=== PATIENT | male | born 1980 | race Caucasian/White ===

== ENCOUNTER 2018-07-25 09:13 | Inpatient (IN) | payer BC ==
[~2018-07-25 09:13] MED LIST: Midazolam 1 MG/ML 2 ML SDV ONE; Morphine 2 MG/ML Syringe IVPUSH PRN; Propofol 200 MG/20 ML SDV ONE; ceFAZolin 2 GM in Premix Bag 1 BAG IV SCH; fentaNYL 100 MCG/2 ML SDV ONE
[2018-07-25] MEDS ORDERED: Propofol 200 MG/20 ML SDV ONE (09:18)
--- NOTE | 2018-07-25 09:47 | PCM.PREANE ---
Preanesthetic Assessment - Anesthesia/Transfusion/Family Hx Anesthesia History: Prior Anesthesia Without Reaction Family History of Anesthesia Reaction: No Transfusion History: No Prior Transfusion(s) Intubation History: Unknown - Review of Systems General: No Symptoms Pulmonary: No Symptoms Cardiovascular: No Symptoms Gastrointestinal: No Symptoms Neurological: No Symptoms Other: Reports: None - Physical Assessment O2 Sat by Pulse Oximetry: 99 Respiratory Rate: 16 Vital Signs: Last Vital Signs Temp 36.2 C 07/25/18 09:32 Pulse 70 07/25/18 09:32 Resp 16 07/25/18 09:32 BP 139/90 07/25/18 09:32 Pulse Ox 99 07/25/18 09:32 Height: 1.73 m Weight: 90.718 kg ASA Class: 2 Mental Status: Alert & Oriented x3 Airway Class: Mallampati = 2 Dentition: Reports: Normal Dentition, Broken Tooth/Teeth (back right, lower) Thyro-Mental Finger Breadths: 3 Mouth Opening Finger Breadths: 3 ROM/Head Extension: Full Lungs: Clear to Auscultation, Normal Respiratory Effort Cardiovascular: Regular Rate, Regular Rhythm - Allergies Allergies/Adverse Reactions: Allergies Allergy/AdvReac Type Severity Reaction Status Date / Time No Known Allergies Allergy Verified 07/25/18 09:37 - Blood Blood Available: No - Anesthesia Plan Pre-Op Medication Ordered: None - Acknowledgements Anesthesia Type Planned: Spinal Pt an Appropriate Candidate for the Planned Anesthesia: Yes Alternatives and Risks of Anesthesia Discussed w Pt/Guardian: Yes Pt/Guardian Understands and Agrees with Anesthesia Plan: Yes PreAnesthesia Questionnaire HEENT History: Reports: None Musculoskeletal History: Reports: Fracture, Other (See Below) Other Musculoskeletal History: congenital dysplasia of rt hip, hx fx collarbone and nose Endocrine/Metabolic History: Reports: Obesity/BMI 30+ - Past Surgical History Head Surgeries/Procedures: Reports: None HEENT Surgical History: Reports: LASIK, Naso-Sinus Surgery - SUBSTANCE USE Smoking Status *Q: Never Smoker Tobacco Use Within Last Twelve Months: Other (See Below) (chew tobacco 10-15 years ago) Recreational Drug Use History: No - HOME MEDS Home Medications: Home Meds Naproxen Sodium [Aleve] 2 tab PO ASDIRECTED PRN 07/21/18 [History] - CURRENT (IN HOUSE) MEDS Current Meds: Current Medications Cefazolin Sodium/Dextrose 2 gm (/ Premix) 50 mls @ 100 mls/hr IV ONETIME OPAL Discontinued Medications Fentanyl (Sublimaze) Confirm Administered Dose 100 mcg .ROUTE .STK-MED ONE Stop: 07/25/18 09:12 Lidocaine HCl (Xylocaine-Mpf 1%) Confirm Administered Dose 5 mls @ as directed .ROUTE .STK-MED ONE Stop: 07/25/18 09:13 Midazolam HCl (Versed 1 Mg/Ml) Confirm Administered Dose 2 mg .ROUTE .STK-MED ONE Stop: 07/25/18 09:09 Midazolam HCl (Versed 1 Mg/Ml) Confirm Administered Dose 2 mg .ROUTE .STK-MED ONE Stop: 07/25/18 09:12 Propofol (Diprivan 20 Ml) Confirm Administered Dose 200 mg .ROUTE .STK-MED ONE Stop: 07/25/18 09:13 Propofol (Diprivan 20 Ml) Confirm Administered Dose 200 mg .ROUTE .STK-MED ONE Stop: 07/25/18 09:19 Tranexamic Acid (Cyklokapron) Confirm Administered Dose 2,000 mg .ROUTE .STK- MED ONE Stop: 07/25/18 07:19
[2018-07-25] MEDS ORDERED: Dermabond Prineo 1 Tube ONE (10:00)
[2018-07-25] MEDS ORDERED: ceFAZolin/Dextrose,Iso-Osmotic 2 GM/50 ML Duplex Bag IV ONE (10:35)
[2018-07-25] MEDS ORDERED: Phenylephrine/Normal Saline 100 MCG/ML 10 ML Syringe ONE (11:49)
[2018-07-25] MEDS ORDERED: Midazolam 1 MG/ML 2 ML SDV ONE (11:50)
[2018-07-25] MEDS ORDERED: Ketamine 500 mg/10 ML MDV ONE (11:51)
[2018-07-25] MEDS ORDERED: diphenhydrAMINE 50 MG/ML SDV IVPUSH PRN (12:14)
[2018-07-25] MEDS ORDERED: fentaNYL 100 MCG/2 ML SDV IVPUSH PRN (12:16)
[2018-07-25] MEDS ORDERED: Ondansetron 4 MG/2 ML SDV IVPUSH PRN ×2 (12:17→12:47)
[2018-07-25] MEDS ORDERED: Aluminum Hydroxide/Magnesium Hydroxide/Simethicone Susp 30 ML Cup PO PRN (12:47)
[2018-07-25] MEDS ORDERED: diphenhydrAMINE 25 MG Cap PO PRN (12:47)
[2018-07-25] MEDS ORDERED: Docusate Sodium 100 MG Cap PO PRN (12:47)
[2018-07-25] MEDS ORDERED: Sodium Chloride 0.9% 10 ML Syringe FLUSH PRN (12:47)
[2018-07-25] MEDS ORDERED: Bisacodyl 10 MG Supp RECTAL PRN (12:47)
[2018-07-25] MEDS ORDERED: Sodium Chloride 0.9% 2.5 ML Syringe FLUSH PRN (12:47)
--- NOTE | 2018-07-25 12:51 | PCM.OPNOTE ---
- General Post-Op/Procedure Note Date of Surgery/Procedure: 07/25/18 Operative Procedure(s): right anterior total hip arthroplasty Findings: severe OA Pre Op Diagnosis: right hip dysplasia with osteoarthitis Post-Op Diagnosis: same Anesthesia Technique: Moderate Sedation, Spinal Primary Surgeon: Panda Tracy Mai Pathology: femoral head Complications: none Condition: Good
[2018-07-25] MEDS ORDERED: Meperidine PF 25 MG/ML Syringe IVPUSH ONE (13:07)
--- NOTE | 2018-07-25 13:29 | PCM.POSTAN ---
POST ANESTHESIA ASSESSMENT - MENTAL STATUS Mental Status: Alert, Oriented - RESPIRATORY Respiratory Status: Respiratory Rate WNL, Airway Patent, O2 Saturation Stable - CARDIOVASCULAR CV Status: Pulse Rate WNL, Blood Pressure Stable - GASTROINTESTINAL GI Status: No Symptoms - PAIN Pain Score: 0 - POST OP HYDRATION Hydration Status: Adequate & Stable
--- NOTE | 2018-07-25 15:42 | CR ---
EXAMINATION: Right hip HISTORY: Arthroplasty COMPARISON: 06/29/2018 TECHNIQUE: 2 images provided FINDINGS/IMPRESSION: Operative control films demonstrate right total hip hardware in good position and alignment.
[2018-07-25] MEDS: Acetaminophen/HYDROcodone 325-5 MG Tab PO PRN ×2 (18:15→22:49)
[2018-07-25] MEDS: ceFAZolin 2 GM in Premix Bag 1 BAG IV SCH ×2 (19:51→19:52)
--- NOTE | 2018-07-25 20:15 | OR ---
SURGEON: Panda Ling MD DATE OF PROCEDURE: 07/25/2018 LECTURER OF [place]UG[place]: Angie Dukes PA-C. PREOPERATIVE DIAGNOSIS: Right hip dysplasia with osteoarthritis. POSTOPERATIVE DIAGNOSIS: Right hip dysplasia with osteoarthritis. OPERATION PERFORMED: Right anterior total hip arthroplasty. ANESTHESIA: Spinal and sedation. COMPLICATION: None. ESTIMATED BLOOD LOSS: 300 mL. SPECIMENS: Femoral head. IMPLANTS: Segundo Continuum trabecular metal shell with cluster holes, 54-mm outer diameter, one 6.5 x 30 mm length bone screw, Vivacit-E neutral liner, 36-mm inner diameter, M/L Taper standard offset size 11 press-fit, Biolox delta ceramic femoral head 36 mm diameter, 0 neck length. INDICATIONS: The patient is a 37-year-old male, severe arthritis related to dysplasia with appearance of possible Perthes as a child. He has failed conservative measures to modification therapy, injections, chronic pain on a daily basis, hindering all activities. He wished to undergo replacement. He understands the risks, benefits, alternatives, complications including, but not limited to, infection, neurovascular injury, continued pain, dislocation, fracture, DVT, PE, stroke, AR, , leg-length discrepancy, and he wished to proceed. DESCRIPTION OF PROCEDURE: The patient was seen in the preoperative area. Operative extremity was marked with the patient. He was transferred to the operating room where spinal anesthetic was given. He was placed supine on the Chambers table and sedation was given. The legs were placed in the leg bars on the Chambers table with a narrow perineal post and right hip prepped and draped in usual sterile fashion using alcohol followed by ChloraPrep. A formal time-out was taken, identifying the correct patient, procedure, and extremity. He received preop antibiotics with Ancef and 2 g of TXA. There was Ioban covering. An 8 cm incision starting just lateral to the ASIS going obliquely down the femur was made. Dissection was carried down to the subcutaneous tissues. Hemostasis was obtained. The fascia overlying the TFL lateral to the lateral femoral cutaneous nerve was opened and the interval between the TFL and sartorius deep between the abductors and rectus was opened. The vastus lateralis fascia was opened. The anterior vessels were coagulated. The indirect head of the rectus was released, and the capsule was held and tagged with two sutures. Deep retractors were placed. The head was noted to be very large and actually subluxed out fully. The neck was kept in saddle region 1 cm above the lesser trochanter and the head was removed. There was severe arthritis. The head was very large. There was dysplasia with a high acetabular index. The labral remnants were removed and the inferior capsule was released preserving the iliopsoas tendon. The pulvinar was removed. The hip was sequentially reamed from 47 up to 53 mm going slightly superomedial to get good fit and fill especially due to the dysplasia and then after irrigating a new Continuum trabecular metal shell with cluster holes was impacted with screw hole straight superior in 10 degrees of anteversion and 40 degrees of abduction. There was excellent press fit with some uncovering laterally once straight superior bone screw was placed after drilling. The neutral liner was impacted. The femoral lift was placed. The leg was externally rotated, abducted, and extended. Superior capsule obturator, internus and piriformis were released. Central canal finder was utilized and the hip was sequentially broached from 4 up to size 11. A 12.5 would not go down and therefore it was trial reduced with a standard offset and 0 neck. Printed overlay technique showed equal leg lengths and offset compared to the opposite side. Therefore, the hip was dislocated. Following the la posta version, the final M/L Taper size 11 standard offset was impacted and the 0 neck 36 mm diameter head was impacted. The hip was relocated. There was stable range of motion. There was no Shuck and would not dislocate. The wound was thoroughly irrigated. The two tag sutures were tied together. The fascia was closed with #1 Vicryl, subcutaneous tissues with 2-0 Stratafix, skin with running 4-0 Monocryl with Dermabond tape. Aquacel dressing was placed. The patient was transferred to recovery room in stable condition. Sponge and needle counts were correct at the end of case. No complications. BOYD / HERMINIA /[id number]
[2018-07-26] MEDS: Acetaminophen/HYDROcodone 325-5 MG Tab PO PRN ×2 (03:30→10:11)
[2018-07-26] MEDS: ceFAZolin 2 GM in Premix Bag 1 BAG IV SCH (03:34)
--- NOTE | 2018-07-26 07:27 | PCM.SN ---
- Free Text/Narrative Note: subjective: has ambulated in room, not in hallway. tolerating PO, no other issues. Pain well controlled Objective: afebrile, vital signs stable dressing clean/dry/intact. normal sensation and motor distally with 2+ DP hgb 13.1 assessment/plan: POD #1 right MARCO A - full weight bearing with walker - SCDs and ecotrin for DVT prophylaxis - home later today
--- NOTE | 2018-07-26 07:31 | PCM48HPAN ---
Post Anesthesia Note - EVALUATION WITHIN 48HRS OF ANESTHETIC Vital Signs in Normal Range: Yes Patient Participated in Evaluation: Yes Respiratory Function Stable: Yes Airway Patent: Yes Cardiovascular Function Stable: Yes Hydration Status Stable: Yes Pain Control Satisfactory: Yes Nausea and Vomiting Control Satisfactory: Yes Mental Status Recovered: Yes Resp Rate: 18 - COMMENTS/OBSERVATIONS Free Text/Narrative:: Up walking in room with walker and states pain is under control
[2018-07-26] MEDS ORDERED: Polyethylene Glycol 3350 Powder 17 GM Packet PO SCH (09:00)
[2018-07-26] MEDS ORDERED: Aspirin 325 MG Tab PO SCH (09:00)
[2018-07-26] MEDS ORDERED: Celecoxib 100 MG Cap PO SCH (09:00)
[2018-07-26] MEDS ORDERED: Famotidine 20 MG Tab PO SCH (09:00)
--- NOTE | 2018-07-26 13:35 | PCM.DCSUM1 ---
Discharge Summary - Hospital Course Brief History: Patient is admitted for elective hip replacement Diagnosis: Stroke: No - Discharge Data Discharge Date: 07/26/18 Discharge Disposition: Home, Self-Care 01 Condition: Good - Patient Summary/Data Operative Procedure(s) Performed: right anterior total hip arthroplasty Consults: Consultations 07/25/18 12:47 PT Evaluation and Treatment [CONS] Routine Hospital Course: He was admitted and underwent uneventful hip replacement. Postoperatively he was admitted to the floor where pain was controlled and diet was advanced. He participated in therapy and did well and was subsequently discharged home on postoperative day #1 - Patient Instructions Diet: Usual Diet as Tolerated Activity: Apply Ice, Full Weight Bearing Driving: Do Not Drive Showering/Bathing: May Shower Wound/Incision Care: Keep Operative Site/Wound Site Clean and Dry, Do NOT Change Dressing Notify Provider of: Fever, Drainage - Discharge Plan *PRESCRIPTION DRUG MONITORING PROGRAM REVIEWED*: No *COPY OF PRESCRIPTION DRUG MONITORING REPORT IN PATIENT JOSUE: No Home Medications: Home Meds Naproxen Sodium [Aleve] 2 tab PO ASDIRECTED PRN 07/21/18 [History] Patient Handouts: Acetaminophen; Hydrocodone tablets or capsules, Partial Hip Replacement, Care After, Aspirin, ASA oral tablets, Docusate capsules Referrals: Angie Dukes PA [Physician Unit Support Representative] - 08/08/18 9:00 am - Discharge Summary/Plan Comment DC Time >30 min.: No - Patient Data Vitals - Most Recent: Last Vital Signs Temp 37 C 07/26/18 08:00 Pulse 92 07/26/18 08:00 Resp 18 07/26/18 08:00 BP 131/70 07/26/18 08:00 Pulse Ox 94 L 07/26/18 08:00 Weight - Most Recent: 90.718 kg I&O - Last 24 hours: Intake & Output 07/25/18 07/26/18 07/26/18 22:59 06:59 14:59 Intake Total 0 900 200 Output Total 0 1100 500 Balance 0 -200 -300 Lab Results - Last 24 hrs: Laboratory Results - last 24 hr 07/26/18 Range/Units 05:30 Hgb 13.2 (13.0-17.0) g/dL Hct 39.2 (38.0-50.0) % Med Orders - Current: Current Medications Discontinued Medications Hydrocodone Bitart/Acetaminophen ([place] 325-5 Mg) 1 - 2 tab PO Q4H PRN PRN Reason: Pain Last Admin: 07/26/18 10:11 Dose: 2 tab Al Hydroxide/Mg Hydroxide (Mag-Al Plus) 30 ml PO Q4H PRN PRN Reason: Indigestion Aspirin (Aspirin) 325 mg PO BID [facility] Last Admin: 07/26/18 10:11 Dose: 325 mg Bisacodyl (Dulcolax) 10 mg RECTAL DAILY PRN PRN Reason: Constipation Cefazolin Sodium/Dextrose (Ancef) Confirm Administered Dose 2 gm IV .STK-MED ONE Stop: 07/25/18 10:36 Celecoxib (Celebrex) 200 mg PO BID [facility] Last Admin: 07/26/18 10:11 Dose: 200 mg Diphenhydramine HCl (Benadryl) 25 - 50 mg IVPUSH Q6H PRN PRN Reason: Itching Diphenhydramine HCl (Benadryl) 25 - 50 mg PO Q6H PRN PRN Reason: Itching Docusate Sodium (Colace) 100 mg PO BID PRN PRN Reason: Constipation Famotidine (Pepcid) 40 mg PO DAILY [facility] Last Admin: 07/26/18 10:11 Dose: 40 mg Fentanyl (Sublimaze) Confirm Administered Dose 100 mcg .ROUTE .STK-MED ONE Stop: 07/25/18 09:12 Fentanyl (Sublimaze) 50 mcg IVPUSH Q5M PRN PRN Reason: Pain Cefazolin Sodium/Dextrose 2 gm (/ Premix) 50 mls @ 100 mls/hr IV ONETIME [facility] Last Infusion: 07/25/18 19:19 Dose: Infused Lidocaine HCl (Xylocaine-Mpf 1%) Confirm Administered Dose 5 mls @ as directed .ROUTE .STK-MED ONE Stop: 07/25/18 09:13 Cefazolin Sodium/Dextrose 2 gm (/ Premix) 50 mls @ 100 mls/hr IV Q8H [facility] Stop: 07/26/18 03:59 Last Admin: 07/26/18 03:34 Dose: 100 mls/hr Ketamine HCl (Ketalar) Confirm Administered Dose 500 mg .ROUTE .STK-MED ONE Stop: 07/25/18 11:52 Meperidine HCl (Demerol) 25 mg IVPUSH ONETIME ONE Stop: 07/25/18 13:08 Last Admin: 07/25/18 13:10 Dose: 12.5 mg Midazolam HCl (Versed 1 Mg/Ml) Confirm Administered Dose 2 mg .ROUTE .STK-MED ONE Stop: 07/25/18 09:09 Midazolam HCl (Versed 1 Mg/Ml) Confirm Administered Dose 2 mg .ROUTE .STK-MED ONE Stop: 07/25/18 09:12 Midazolam HCl (Versed 1 Mg/Ml) Confirm Administered Dose 2 mg .ROUTE .STK-MED ONE Stop: 07/25/18 11:51 Morphine Sulfate (Morphine) 1 - 3 mg IVPUSH Q3H PRN PRN Reason: Pain Last Admin: 07/25/18 18:14 Dose: 2 mg Octyl Cyanoacrylate (Dermabond Prineo) 1 applic .ROUTE .STK-MED ONE Stop: 07/25/18 10:01 Ondansetron HCl (Zofran) 4 mg IVPUSH Q6H PRN PRN Reason: Nausea/Vomiting Ondansetron HCl (Zofran) 4 mg IVPUSH Q6H PRN PRN Reason: Nausea/Vomiting Phenylephrine HCl (Phenylephrine In Ns 100 Mcg/Ml) Confirm Administered Dose 1 mg .ROUTE .STK-MED ONE Stop: 07/25/18 11:50 Polyethylene Glycol (Miralax) 17 gm PO DAILY [facility] Last Admin: 07/26/18 10:16 Dose: 17 gm Propofol (Diprivan 20 Ml) Confirm Administered Dose 200 mg .ROUTE .STK-MED ONE Stop: 07/25/18 09:13 Propofol (Diprivan 20 Ml) Confirm Administered Dose 200 mg .ROUTE .STK-MED ONE Stop: 07/25/18 09:19 Sodium Chloride (Saline Flush) 10 ml FLUSH ASDIRECTED PRN PRN Reason: Keep Vein Open Sodium Chloride (Saline Flush) 2.5 ml FLUSH ASDIRECTED PRN PRN Reason: Keep Vein Open Tranexamic Acid (Cyklokapron) Confirm Administered Dose 2,000 mg .ROUTE .STK- MED ONE Stop: 07/25/18 07:19
== END 2018-07-26 11:00 | disposition home or self-care (01) | DRG 301 ==
LOC: MW.MS 09:13
PROVIDERS: ADMIT Orthopaedic Surgery; ATTEND Orthopaedic Surgery
PROC: 0SR904Z Replacement of Right Hip Joint with Ceramic on Polyethylene Synthetic Substitute, Open Approach (ICD-10-PCS; principal; 2018-07-25)
DX: M16.11 Unilateral primary osteoarthritis, right hip (principal); E66.9 Obesity, unspecified; Z68.31 Body mass index [BMI] 31.0-31.9, adult; Z87.891 Personal history of nicotine dependence; Z79.899 Other long term (current) drug therapy; Q65.89 Other specified congenital deformities of hip
CPT/HCPCS: 36415; 76000; 76000-26; 85014; 85018; 97110-GP; 97161-GP; 97530-GP; A9270-GY; C1713; C1776; J0690; J2175; J2250; J2270; J2370; J2704; J3010